=== PATIENT | female | born 1980 ===

== ENCOUNTER 2021-09-16 07:43 | Emergency (ER) | payer OTHER ==
[~2021-09-16] VITALS: Ht 165.1 cm; Wt 96.6 kg
== END 2021-09-16 10:30 ==
LOC: ER 07:43
DX: S09.90XA Unspecified injury of head, initial encounter (principal); S16.1XXA Strain of muscle, fascia and tendon at neck level, initial encounter; S80.02XA Contusion of left knee, initial encounter; S80.01XA Contusion of right knee, initial encounter; S40.011A Contusion of right shoulder, initial encounter; V89.2XXA Person injured in unspecified motor-vehicle accident, traffic, initial encounter
CPT/HCPCS: 70450; 71045; 72125; 73030; 73562-RT; 99283-25; L0160